=== PATIENT | male | born 1960 | race Caucasian/White ===

== ENCOUNTER 2018-10-01 03:47 | Emergency (ER) | payer BC ==
[2018-10-01] MEDS ORDERED: Tobramycin/dex OPTH 2.5 ML BOT ONE (04:11)
[2018-10-01] MEDS ORDERED: Neomycin-Polymyxin-Hc 7.5 ML BOT ONE (04:19)
[2018-10-01] MEDS ORDERED: HYDROcodone/Acetaminophen 10/325 mg Tablet ONE (04:21)
[2018-10-01] MEDS ORDERED: Dexamethasone 4 MG TAB ONE (04:22)
== END 2018-10-01 04:25 | disposition home or self-care (01) ==
LOC: BURERS 03:47
DX: H60.92 Unspecified otitis externa, left ear (principal); M10.9 Gout, unspecified; E03.9 Hypothyroidism, unspecified; Z79.899 Other long term (current) drug therapy
CPT/HCPCS: 99282; J8540